=== PATIENT | female | born 1995 | race African-American/Black ===

== ENCOUNTER 2022-11-23 23:03 | Emergency (ER) | payer MEDICAID | END 2022-11-24 00:31 | disposition left against medical advice (07) | LOC: ER 23:03 | DX: Z53.21 Procedure and treatment not carried out due to patient leaving prior to being seen by health care provider (principal) ==

== ENCOUNTER 2023-05-07 16:05 | Emergency (ER) | payer MEDICAID ==
[~2023-05-07] VITALS: Ht 165.1 cm; Wt 58.0 kg
[2023-05-07 16:12] VITALS: BP 123/80; PULSE 87; RESP 20; TEMP 98.2; O2SAT 100
== END 2023-05-07 20:10 | disposition left against medical advice (07) ==
LOC: ER 16:05
DX: Z53.21 Procedure and treatment not carried out due to patient leaving prior to being seen by health care provider (principal)
CPT/HCPCS: 99281